=== PATIENT | female | born 1970 | race African-American/Black ===

== ENCOUNTER → 2017-03-05 | Outpatient (CLI) | payer BC ==
[2017-03-10 16:15] LABS: HSV 1 IGM <1:10 titer (<1:10); HSV 2 IGM <1:10 titer (<1:10)
== END | disposition home or self-care (01) ==
LOC: LAB 17:31
PROVIDERS: ATTEND Obstetrics & Gynecology
DX: Z20.2 Contact with and (suspected) exposure to infections with a predominantly sexual mode of transmission (principal)
CPT/HCPCS: 36415; 86593; 86695; 86703